=== PATIENT | female | born 1985 | race Caucasian/White ===

== ENCOUNTER 2019-05-12 17:14 | Outpatient (REF) | payer MEDICAID, SELFPAY ==
[2019-05-12 22:59] LABS: HCT 41.2 % (36.0-46.0); HGB 14.2 g/dL (12.0-15.5); Mean Corp. HGB Concentration 34.5 g/dL (32.0-36.0); Mean Corpuscular Hemoglobin 30.4 pg (27.0-33.0); Mean Corpuscular Volume 88.2 fL (80-95); Mean Platelet Volume 9.4 fL (8.0-11.0); Platelet Count 319 x1000/uL (130-400); RBC 4.67 m/cumm (4.00-5.20); RBC Distribution Width 13.9 % (11.7-14.6)
[2019-05-12 23:21] LABS: ALT 27 U/L (14-59); AST 16 U/L (15-37); Albumin 3.6 g/dL (3.4-5.0); Alkaline Phosphatase 51 U/L (46-116); Anion Gap 9.2 mmol/L (3-11); BUN 14 mg/dL (7-18); Bilirubin, Total 0.6 mg/dL (0.2-1.0); CO2 25.8 mmol/L (21.0-32.0); CREATININE 0.94 mg/dL (0.55-1.02); Chloride 104 mmol/L (98-107); Glucose 79 mg/dL (74-106); Potassium 3.9 mmol/L (3.5-5.1); Sodium 139 mmol/L (136-145); TSH (W/Ref FT4) 2.88 uIU/mL (0.36-3.74); Total Protein 6.9 g/dL (6.4-8.2)
== END 2019-05-12 17:34 ==
LOC: NCHCN 17:14
PROVIDERS: Visit Provider Nurse Practitioner Community Health
DX: R25.1 Tremor, unspecified (principal)
CPT/HCPCS: 80053; 85027; 84443

== ENCOUNTER 2020-12-30 17:46 | Outpatient (REF) | payer MEDICAID, SELFPAY ==
[2021-01-01 13:23] LABS: COVID-19 RT-PCR UVMMC Result Negative (Negative)
== END 2020-12-30 17:47 | disposition home or self-care (01) ==
LOC: NCHCN 17:46
PROVIDERS: Visit Provider Registered Nurse
DX: Z20.822 Contact with and (suspected) exposure to COVID-19 (principal); J06.9 Acute upper respiratory infection, unspecified
CPT/HCPCS: U0003